=== PATIENT | male | born 1955 | race Caucasian/White ===

== ENCOUNTER 2019-06-14 07:51 | Inpatient (IN) | payer BC ==
[~2019-06-14] VITALS: Ht 180.3 cm; Wt 113.0 kg
[2019-06-14] VITALS (450 sets, daily range): BP systolic 105–131; BP diastolic 72–90; PULSE 74–84; TEMP 97.5–98.7; O2SAT 82–100
[~2019-06-14 07:51] MED LIST: ALLEGRA180 MG PO; CELEBREX 200MG200 MG PO; DOXYCYCLINE 10100 MG PO; EPI EZ PEN1 MG/ML IM; FORTAMET1000 MG PO; GLUCOPHAGE; IBUPROFEN800 MG PO; INSULIN; LANTUS100 U/ML; NIACIN PO; NOVOLIN 70/30 IN3 ML SC; PEPCID 20MG TAB20 MG PO; PREDNISONE20 MG PO; SINGULAIR10 MG PO; TRAMADOL50 MG PO; VASOTEC10 MG PO
[2019-06-14 08:48] LABS: BASO % 0.4 % (0.0-2.0); EOS % 0.4 % (0-4.0); GRAN # 4.5 (1.4-6.5); GRAN % 81.8 % (42.2-75.2); HEMATOCRIT 42.1 % (42.0-52.0); HEMOGLOBIN 14.3 g/dl (13.5-18.0); LYMPH # 0.4 (1.2-3.4); LYMPH % 7.1 % (20.0-51.0); MEAN CELL VOLUME 79 fl (80.0-100.0); MEAN CORPUSCULAR HEMOGLOBIN 27 pg (27.0-31.0); MEAN CORPUSCULAR HGB CONC 34 g/dl (33.0-37.0); MONO # 0.5 (0.1-0.6); MONO % 9.8 % (1.7-9.3); PLATELET COUNT 93 K/mm3 (130-400); RED BLOOD COUNT 5.32 M/mm3 (4.20-5.60); REDCELL DISTRIBUTION WIDTH-CV 13.7 % (11.5-14.5)
[2019-06-14] MEDS ORDERED: NATURAL POTASS595 MG PO (08:50)
[2019-06-14] MEDS ORDERED: PRILOSEC 20MG20 MG PO (08:51)
[2019-06-14] MEDS ORDERED: LYRICA 100MG C100 M1 PO (08:52)
[2019-06-14] MEDS ORDERED: ULTRAM 50MG TAB50 MG PO ×2 (08:52→08:53)
[2019-06-14] MEDS ORDERED: AMITRIPTYLINE H25 M1 PO (08:54)
[2019-06-14] MEDS ORDERED: LIVALO1 MG PO (08:54)
[2019-06-14] MEDS ORDERED: MOBIC15 MG PO (08:55)
[2019-06-14] MEDS ORDERED: OMEGA-3 FISH1000 MG PO (08:56)
[2019-06-14] MEDS ORDERED: MULTIPLE VITAMI1 CAP PO (08:56)
[2019-06-14] MEDS ORDERED: GLUCOPHAGE1000 MG PO (08:57)
[2019-06-14] MEDS ORDERED: TRULICITY1.5 MG/0.5 SQ (08:58)
[2019-06-14] MEDS ORDERED: LEVEMIR100 U/ML SQ (08:59)
[2019-06-14 09:00] LABS: ALANINE AMINOTRANSFERASE 237 U/L (21-72); ALBUMIN 3.9 gm/dL (3.5-5.0); ALKALINE PHOSPHATASE 713 U/L (50-136); ANION GAP 15 mmol/L (7-16); AST,SGOT 173 U/L (15-37); BILIRUBIN,TOTAL 1.2 mg/dL (0.0-1.0); BLOOD UREA NITROGEN 50 mg/dL (9-20); CALCIUM 9.4 mg/dL (8.4-10.2); CARBON DIOXIDE 27 mmol/L (22-30); CHLORIDE 93 mmol/L (98-107); CREATININE, serum 1.44 (0.66-1.25); GLUCOSE 156 mg/dL (74-106); LIPASE 272 U/L (23-300); POTASSIUM 3.2 mmol/L (3.4-5.0); SODIUM 134 mmol/L (137-145); TOTAL PROTEIN 7.7 gm/dL (6.4-8.2)
[2019-06-14] MEDS ORDERED: VITAMINC1000TA PO (09:00)
[2019-06-14] MEDS ORDERED: NOVOLIN R100 U/ML (09:00)
[2019-06-14 09:06] LABS: INR 1.1 (0.8-3.0); PROTHROMBIN TIME 13.1 SECONDS (9.7-12.8)
[2019-06-14 09:12] LABS: C-REACTIVE PROTEIN 18.6 mg/dL (0.0-0.9); TROPONIN-I < 0.012 ng/mL (0.000-0.035)
[2019-06-14 15:12] LABS: COLLECTION METHOD CLEAN CATCH
[2019-06-14 15:30] LABS: AMORPHOUS CRYSTAL Present /uL; MUCOUS Present /lpf; PH 5 (5-8); SQUAMOUS EPITHELIAL 0-2 /hpf; URINE APPEARANCE Cloudy; URINE BACTERIA None Seen /hpf; URINE BILIRUBIN Negative (NEGATIVE); URINE BLOOD Negative (NEGATIVE); URINE COLOR Yellow; URINE GLUCOSE 3+ (NEGATIVE); URINE KETONE Negative (NEGATIVE); URINE LEUKOCYTE ESTERASE Negative (NEGATIVE); URINE NITRATE Negative (NEGATIVE); URINE PROTEIN(semi-quant) 1+ (NEGATIVE)
--- NOTE | 2019-06-14 15:41 | NUR ---
Report given to LindaRN - pt ambulated from ICU 6 to IMCU 16 with standby assistance and without difficulty
--- NOTE | 2019-06-14 15:45 | NUR ---
Patient transfers to [facility] 16 from ICU 6. Assessment completed. Care assumed.
--- NOTE | 2019-06-14 19:02 | NUR ---
Report given to TABITHA Merchant
[2019-06-15] VITALS (16 sets, daily range): BP systolic 100–106; BP diastolic 57–72; PULSE 74–92; TEMP 97.9–98.3; O2SAT 96–99
[2019-06-15 06:48] LABS: MEAN CELL VOLUME 79 fl (80.0-100.0); MEAN CORPUSCULAR HGB CONC 34 g/dl (33.0-37.0); MEAN PLATELET VOLUME 12.4 fl (7.4-10.4); PLATELET COUNT 85 K/mm3 (130-400); RED BLOOD COUNT 4.33 M/mm3 (4.20-5.60); REDCELL DISTRIBUTION WIDTH-CV 14.2 % (11.5-14.5)
[2019-06-15 06:53] LABS: HEMATOCRIT 34.1 % (42.0-52.0); HEMOGLOBIN 11.5 g/dl (13.5-18.0); INR 1.1 (0.8-3.0); MEAN CORPUSCULAR HEMOGLOBIN 27 pg (27.0-31.0)
--- NOTE | 2019-06-15 06:56 | NUR ---
Report given to TABITHA Arreguin
[2019-06-15 07:13] LABS: ALBUMIN 2.7 gm/dL (3.5-5.0); BILIRUBIN,TOTAL 0.7 mg/dL (0.0-1.0); CALCIUM 7.9 mg/dL (8.4-10.2); CREATININE, serum 1.34 (0.66-1.25); MAGNESIUM 2.3 mg/dL (1.6-2.3); POTASSIUM 3.4 mmol/L (3.4-5.0); TOTAL PROTEIN 5.9 gm/dL (6.4-8.2)
--- NOTE | 2019-06-15 07:15 | NUR ---
Report received from Shonda LU and care resumed.
[2019-06-15 08:16] LABS: BAND 4 % (0-10); EOSINOPHIL 1 % (0-4); LYMPHOCYTE 6 % (20.0-51.0); NEUTROPHILS 79 % (42.0-75.2)
[2019-06-15 08:17] LABS: PLATELET ESTIMATE DECREASED (NORMAL)
--- NOTE | 2019-06-15 09:41 | NUR ---
Patient lives at home with his (Leonila Crandall [phone] and [phone]) in [place], [place] and he plans to return home upon recovery. 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 Patient uses a cane as needed for mobility assistance, his primary care physician is [facility], his pharmacy is [facility], and he does not have advance directives for healthcare completed at this time. No further needs and social media marketing manager will follow as needed.
--- NOTE | 2019-06-15 11:51 | NUR ---
Dr Mcnally in to see pt at this time.
--- NOTE | 2019-06-15 13:25 | NUR ---
Pt iv removed and pt dressed. Pt given discharge instructions. Pt walked out to ER entrance for discharge at this time.
== END 2019-06-15 13:25 | disposition home or self-care (01) | DRG 871 ==
LOC: COL.ER 07:51 → ICU 09:37 → IMCU 15:40
PROVIDERS: Emergency Medicine; ADMIT Internal Medicine
DX: A41.9 Sepsis, unspecified organism (principal); D61.811 Other drug-induced pancytopenia; G93.41 Metabolic encephalopathy; E87.2 Acidosis; N17.9 Acute kidney failure, unspecified; T68.XXXA Hypothermia, initial encounter; R65.20 Severe sepsis without septic shock; R74.0 Nonspecific elevation of levels of transaminase and lactic acid dehydrogenase [LDH]; T36.95XA Adverse effect of unspecified systemic antibiotic, initial encounter; R53.81 Other malaise; E11.65 Type 2 diabetes mellitus with hyperglycemia; E11.649 Type 2 diabetes mellitus with hypoglycemia without coma; E87.6 Hypokalemia; Z79.82 Long term (current) use of aspirin; Z79.4 Long term (current) use of insulin
CPT/HCPCS: 99222; 99223-AI; 99239; J1650; J1815; J2405; J2543; J7030

== ENCOUNTER 2019-06-19 15:11 | Emergency (ER) | payer OTHER ==
[~2019-06-19] VITALS: Ht 180.3 cm; Wt 109.1 kg
[~2019-06-19 15:11] MED LIST changes: +AMITRIPTYLINE H25 M1 PO; +GLUCOPHAGE1000 MG PO; +LEVEMIR100 U/ML SQ; +LIVALO1 MG PO; +LYRICA 100MG C100 M1 PO; +MOBIC15 MG PO; +MULTIPLE VITAMI1 CAP PO; +NATURAL POTASS595 MG PO; +NOVOLIN R100 U/ML; +OMEGA-3 FISH1000 MG PO; +PRILOSEC 20MG20 MG PO; +TRULICITY1.5 MG/0.5 SQ; +ULTRAM 50MG TAB50 MG PO; +VITAMINC1000TA PO
[2019-06-19 15:19] VITALS: TEMP 98.5
[2019-06-19] MEDS ORDERED: NORCO 325 MG-51 TAB PO (16:28)
[2019-06-19 17:27] VITALS: BP 143/83; PULSE 90
== END 2019-06-19 17:27 | disposition home or self-care (01) ==
LOC: COL.ER 15:11
DX: S62.501A Fracture of unspecified phalanx of right thumb, initial encounter for closed fracture (principal); S01.01XA Laceration without foreign body of scalp, initial encounter; I10 Essential (primary) hypertension; E11.9 Type 2 diabetes mellitus without complications; Z23 Encounter for immunization; Z79.4 Long term (current) use of insulin; W10.9XXA Fall (on) (from) unspecified stairs and steps, initial encounter; Y92.59 Other trade areas as the place of occurrence of the external cause
CPT/HCPCS: Q4021; Q4050

== ENCOUNTER 2020-10-16 04:02 | Emergency (ER) | payer BC ==
[~2020-10-16] VITALS: Ht 180.3 cm; Wt 102.3 kg
[~2020-10-16 04:02] MED LIST changes: +NORCO 325 MG-51 TAB PO
[2020-10-16 04:06] VITALS: TEMP 98.4
[2020-10-16 04:36] LABS: BASO % 0.5 % (0.0-2.0); EOS # 0.5 (0.0-0.7); EOS % 8.7 % (0-4.0); GRAN # 3.5 (1.4-6.5); GRAN % 59.1 % (42.2-75.2); HEMATOCRIT 43.9 % (42.0-52.0); HEMOGLOBIN 14.3 g/dl (13.5-18.0); LYMPH # 1.3 (1.2-3.4); LYMPH % 22.2 % (20.0-51.0); MEAN CELL VOLUME 82 fl (80.0-100.0); MEAN CORPUSCULAR HEMOGLOBIN 27 pg (27.0-31.0); MEAN CORPUSCULAR HGB CONC 33 g/dl (33.0-37.0); MEAN PLATELET VOLUME 11.7 fl (7.4-10.4); MONO # 0.6 (0.1-0.6); MONO % 9.3 % (1.7-9.3); PLATELET COUNT 188 K/mm3 (130-400); RED BLOOD COUNT 5.33 M/mm3 (4.20-5.60); REDCELL DISTRIBUTION WIDTH-CV 13.8 % (11.5-14.5)
[2020-10-16 04:55] LABS: CREATINE KINASE 39 U/L (55-170)
[2020-10-16 04:56] LABS: ALANINE AMINOTRANSFERASE 29 U/L (4-49); ALBUMIN 4.1 gm/dL (3.5-5.0); ALKALINE PHOSPHATASE 132 U/L (50-136); ANION GAP 6 mmol/L (7-16); AST,SGOT 29 U/L (15-37); BILIRUBIN,TOTAL 0.3 mg/dL (0.0-1.0); BLOOD UREA NITROGEN 24 mg/dL (9-20); CALCIUM 9.4 mg/dL (8.4-10.2); CARBON DIOXIDE 29 mmol/L (22-30); CHLORIDE 102 mmol/L (98-107); CREATININE, serum 0.99 (0.66-1.25); GLUCOSE 234 mg/dL (74-106); POTASSIUM 4.1 mmol/L (3.4-5.0); SODIUM 136 mmol/L (137-145); TOTAL PROTEIN 7.9 gm/dL (6.4-8.2)
[2020-10-16 04:59] LABS: TROPONIN-I < 0.012 ng/mL (0.000-0.035)
[2020-10-16 05:50] VITALS: BP 125/84; PULSE 68
== END 2020-10-16 05:56 | disposition home or self-care (01) ==
LOC: COL.ER 04:02
PROVIDERS: Emergency Medicine
DX: R07.89 Other chest pain (principal); R00.2 Palpitations; E11.9 Type 2 diabetes mellitus without complications; Z79.4 Long term (current) use of insulin
CPT/HCPCS: J2060

== ENCOUNTER 2021-04-05 15:35 | Emergency (ER) | payer BC ==
[~2021-04-05] VITALS: Ht 177.8 cm; Wt 104.5 kg
[2021-04-05] MEDS ORDERED: CEPHALEXIN500 M1 PO (16:33)
[2021-04-05 16:50] VITALS: BP 131/78; PULSE 81; TEMP 98.3
== END 2021-04-05 16:52 | disposition home or self-care (01) ==
LOC: COL.ER 15:35
DX: S61.217A Laceration without foreign body of left little finger without damage to nail, initial encounter (principal); E11.9 Type 2 diabetes mellitus without complications; Z79.4 Long term (current) use of insulin; Z79.84 Long term (current) use of oral hypoglycemic drugs; W27.0XXA Contact with workbench tool, initial encounter; Y93.H2 Activity, gardening and landscaping

== ENCOUNTER 2021-07-22 11:53 | Inpatient (IN) | payer BC ==
[~2021-07-22] VITALS: Ht 177.8 cm; Wt 98.1 kg
[~2021-07-22 11:53] MED LIST changes: +CEPHALEXIN500 M1 PO; +JARDIANCE10; +LYRICA 150MG C150 MG PO; +MULTI VITAMINS1 TAB PO; +NOVOLOG 100U100 U/M1; +OMEGA-3 1000 MG1 CAP PO; +OZEMPIC0.25 MG/0. SQ; +SYNTHROID0.075 MG/T PO
[2021-07-24] MEDS ORDERED: TYLENOL 325MG325 MG PO (10:58)
[2021-07-24] MEDS ORDERED: ASPIRIN 81M81 MG/TA2 PO (10:59)
[2021-07-24] MEDS ORDERED: LIPITOR 40MG TA40 MG PO (10:59)
[2021-07-24] MEDS ORDERED: CORRECTIVE LAXAT5 MG PO (11:00)
[2021-07-24] MEDS ORDERED: BUSPIRONE HCL7.5 MG PO (11:01)
[2021-07-24] MEDS ORDERED: FLEXERIL 1010 MG/TAB PO (11:03)
[2021-07-24] MEDS ORDERED: DEXTROSE 40% PO (11:10)
[2021-07-24] MEDS ORDERED: FENTANYL 25 MCG TD (11:11)
[2021-07-24] MEDS ORDERED: CYMBALTA 30MG30 MG PO (11:11)
[2021-07-24] MEDS ORDERED: NORCO 325 MG-101 TAB PO (11:13)
[2021-07-24] MEDS ORDERED: LANTUS100 U/ML SQ (11:14)
[2021-07-24] MEDS ORDERED: INSULIN LI100 UNIT/1 SQ (11:20)
[2021-07-24] MEDS ORDERED: SYNTHROID0.075 MG/T PO (11:21)
[2021-07-24] MEDS ORDERED: SALONPAS1 EACH TP (11:22)
[2021-07-24] MEDS ORDERED: MILK OF MA1200 MG/5 PO (11:23)
[2021-07-24] MEDS ORDERED: TOPROL XL 25MG25 MG PO (11:24)
[2021-07-24] MEDS ORDERED: PROTONIX 40MG T40 MG PO (11:24)
[2021-07-24] MEDS ORDERED: [UNRECOGNIZED DRUG - OTHER] IV (11:27)
[2021-07-24] MEDS ORDERED: SENOKOT8.6 MG PO ×2 (11:29→11:31)
[2021-07-24] MEDS ORDERED: THEREMS-M TABL1 EACH PO (11:31)
[2021-07-24] MEDS ORDERED: MVI WITH MINERALS PO (11:32)
[2021-07-24] MEDS ORDERED: HUMALOG100 U/ML (11:37)
--- NOTE | 2021-07-24 15:02 | NUR ---
New pt. transported to IPR unit via medical transportation bus from [facility] in [place]. Pt. is alert & oriented x 4. He denies pain or discomfort. Admission assessment and intake completed. Orientation provided to room, call light, visitors, meals. He has no further questions at this time. Call light is within his reach. Pt. arrived to unit at 1400 via stretcher.
[2021-07-24 16:46] VITALS: BP 140/65; PULSE 100; TEMP 99
[2021-07-24 18:20] VITALS: BP 140/65; PULSE 100; TEMP 99
--- NOTE | 2021-07-24 21:22 | NUR ---
PT RESTING IN BED. SEE MAR FOR FLEXARIL GIVEN FOR ARTHRITIC/MUSCLE BACK PAIN. CALL LIGHT IN REACH. BED ALARM SET. DUMAS CATHETER IN PLACE TO DD. DRAINING CLEAR YELLOW URINE W/O DIFFICULTY.
[2021-07-25 05:26] VITALS: BP 140/75; PULSE 83; TEMP 98.8
--- NOTE | 2021-07-25 05:55 | NUR ---
PT HAS HAC UNEVENTFUL NIGHT. NO COMPLAINTS.
--- NOTE | 2021-07-25 07:30 | NUR ---
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
--- NOTE | 2021-07-25 10:37 | NUR ---
Car Construction Superintendent met with patient to complete initial intake as he is new to [facility]. Patient admitted from [facility] in [place]. Patient lives in [place] with his , Leonila (ph#[phone]) and sees Dr. Steward for primary care. Patient obtains medications from [facility] with no difficulties and has a cane and walker at home. Patient was independent with ADLS prior to his hospitalization. 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 Patient advised he also receives services through the [facility] and is on the red team. Patient does not have Advance Directives and is not interested in designating DPOA-HC at this time. SW will continue to follow for discharge needs.
[2021-07-25 17:07] VITALS: BP 147/78; PULSE 93; TEMP 98.2
--- NOTE | 2021-07-26 01:18 | NUR ---
PATIENT ALERT AND ORIENTED. C/O BACK PAIN AND PRN NORCO GIVEN. HS MEDS PER EMAR. ZOSYN TO R WRIST IV. HAS NOT VOIDED YET.
[2021-07-26 05:55] VITALS: BP 122/65; PULSE 90; TEMP 98.3
--- NOTE | 2021-07-26 06:30 | NUR ---
Patient laying in bed, A&Ox4. VSS. IV CDI. Denies pain and discomfort. Nursing staff x2 assisted with repositioning the patient in bed for breakfast. Indpendent with urinal, feeds and positioning in bed. Call light within reach. Bed alarm on
[2021-07-26 17:21] VITALS: BP 124/76; PULSE 93; TEMP 97.7
--- NOTE | 2021-07-26 17:24 | NUR ---
Patient sitting up in the recliner with family at the bedside. A&Ox4. VSS. IV CDI. WBG 65. Will recheck after eating dinner. Patient independent with urinal and feeds. Denies pain and discomfort. Call light within reach
--- NOTE | 2021-07-27 00:36 | NUR ---
PATIENT IN BED. A&O X4. C/O PAIN TO BACK, PRN NORCO GIVEN AT SHIFT CHANGE. INDEPENDENT IN BED WITH TURNS AND USE OF URINAL. HS MEDICATIONS PER EMAR. BLOOD SUGAR 138, NO SSI. INT R FA PATENT AND FLUSHES WITH INT ZOSYN. LIDOCAINE PATCH TO LOWER BACK REMOVED.
[2021-07-27 05:16] VITALS: BP 113/56; PULSE 82; TEMP 98.2
--- NOTE | 2021-07-27 07:14 | NUR ---
SHIFT REPORT RECEIVED FROM UTILITY SALES AND SERVICE MANAGER RN. PT. AWAKE AND LYING IN BED. DENIES PAIN OR DISCOMFORT. DENIES FURTHER NEEDS. CALL LIGHT IS WITHIN HIS REACH
[2021-07-27 07:48] LABS: EOS # 0.1 K/mm3 (0.0-0.7); EOS % 3.1 % (0.0-4.0); GRAN # 1.5 K/mm3 (1.4-6.5); GRAN % 35.8 % (42.2-75.2); LYMPH # 2.1 K/mm3 (1.2-3.4); LYMPH % 49.8 % (20.0-51.0); MEAN CELL VOLUME 81 fl (80.0-100.0); MEAN CORPUSCULAR HGB CONC 32 g/dl (33.0-37.0); MEAN PLATELET VOLUME 10.3 fl (7.4-10.4); MONO # 0.4 K/mm3 (0.1-0.6); MONO % 10.1 % (1.7-9.3); PLATELET COUNT 414 K/mm3 (130-400); REDCELL DISTRIBUTION WIDTH-CV 16.3 % (11.5-14.5)
[2021-07-27 07:51] LABS: HEMATOCRIT 23.4 % (42.0-52.0); HEMOGLOBIN 7.4 g/dl (13.5-18.0); MEAN CORPUSCULAR HEMOGLOBIN 26 pg (27-31)
[2021-07-27 07:56] LABS: C-REACTIVE PROTEIN 5.77 mg/dL (0.00-0.50); CALCIUM 8.5 mg/dL (8.4-10.2); CREATININE, serum 0.99 mg/dL (0.72-1.25); MAGNESIUM 1.8 mg/dL (1.6-2.6); POTASSIUM 3.7 mmol/L (3.5-4.5)
--- NOTE | 2021-07-27 10:15 | NUR ---
IV abx started as per order. ST noted that IV site right forearm is "swelling". IV site infiltration noted by this law writer. IV abx infusion stopped at this time. IV placement attempted x 1 to left hand - this was unsuccessful. Charge nurse notified to reattempt IV placement
--- NOTE | 2021-07-27 11:45 | NUR ---
IV successfully restarted to right forearm by charge nurse. IV site flushes well but site infiltrates a few minutes after starting abx infusion. Dr. Villatoro informed and discussed switching to PO medication if possible. He will discuss with hospitalist team. IV Zosyn discontinued at this time
--- NOTE | 2021-07-27 15:31 | NUR ---
Elementary School Music Teacher met with patient to review and provide copy of team conference notes. SW advised patient that the team is not ready to set a discharge date at this time. LUKE also advised patient that a family meeting will be scheduled for next week. Patient requested SW contact the [facility] (Red Team) to inquire about securing a shower chair. LUKE contacted the Red Team and left a message with the medicare contact specialist. LUKE then contacted patient's , Leonila and scheduled family meeting for 08/03/21 at 1000.
[2021-07-27 17:42] VITALS: BP 138/69; PULSE 93; TEMP 97.6
--- NOTE | 2021-07-27 17:50 | NUR ---
1730 BLOOD SUGAR WAS 37. PT. ALERT AND EATING DINNER. DAUGHTER IS AT BEDSIDE. PT. GIVEN SUGARY DRINK TO HELP BRING UP BLOOD SUGAR. BLOOD SUGAR RECHECKED NOW AND IS UP TO 50. PT. GIVEN SHERBET AND RENEA PUDDING AT HIS REQUEST
--- NOTE | 2021-07-27 21:44 | NUR ---
PATIENT ALERT AND ORIENTED. HS MEDS PER EMAR AND PRN NORCO FOR BACK PAIN. X2 ASSIST WITH WALKER BACK TO BED. BLOOD SUGAR 205 AT HS CHECK, 2 UNITS SSI GIVEN. LIDOCAINE PATCH TO LOWER BACK REMOVED. SITTING IN BED WATCHING TV, CALL LIGHT IN REACH.
[2021-07-28 05:23] VITALS: BP 129/71; PULSE 87; TEMP 98.1
--- NOTE | 2021-07-28 08:00 | NUR ---
Patient laying in bed, A&Ox3. VSS. Request pain medication for back prior to working with PT. RT leg elevated on pillow. Independent with feeds and repositioning in bed. Call light within reach. Bed alarm on
--- NOTE | 2021-07-28 13:18 | NUR ---
Admission QIM scores were reviewed by the team. Code of 4 chosen for oral hygiene was determined by team discussion to be the most usual performance for this patient during the assessment period. Code of 1 chosen for toilet hygiene was determined by team discussion to be the most usual performance for this patient during the assessment period. Code of 2 chosen for toileting transfers was determined by team discussion to be the most usual performance for this patient during the assessment period. Code of 2 chosen for upper body dressing was determined by team discussion to be the most usual performance before interventions for this patient during the assessment period. Code of 2 for sit to stand was determined by team discussion to be the most usual performance for this patient during the assessment period. Code of 88 for chair/bed to chair transfers was determined by team discussion to be the most usual performance for this patient during the assessment period.--Giselle Reeves, PD
--- NOTE | 2021-07-28 13:42 | NUR ---
Outfitter Cabin spoke with the Red Team at the [facility] and was advised an order for a shower chair will be placed. Patient will be contacted once the shower chair is in.
--- NOTE | 2021-07-28 17:51 | NUR ---
Patient sitting up in the recliner, family at the bedside. A&Ox3. VSS. Reports pain in back, kpad applied. Pain medication given when requested. Independent with feeds and repositioning in bed. Call light within reach. Chair alarm on
[2021-07-28 18:14] VITALS: BP 96/83; PULSE 85; TEMP 97.5
[2021-07-29 05:18] VITALS: BP 143/66; PULSE 88; TEMP 98.5
--- NOTE | 2021-07-29 06:05 | NUR ---
pt requested pain meds @HS, norco and flexeril given. sleeping on warm kpad for back pain. fentanyl patch in place. no SS insulin required this shift.
--- NOTE | 2021-07-29 07:16 | NUR ---
SHIFT REPORT RECEIVED FROM YARN SPOOLER RN. PT. AWAKE AND RESTING IN BED. HOB ELEVATED APPROX 30 DEGREES. HE DENIES PAIN OR DISCOMFORT. DENIES FURTHER NEEDS AT THIS TIME. CALL LIGHT IS WITHIN HIS REACH
--- NOTE | 2021-07-29 14:34 | NUR ---
Target Setter met with patient to follow up before the weekend. Patient's is at bedside. Patient has no questions or concerns at this time.
[2021-07-29 17:23] VITALS: BP 123/56; PULSE 71; TEMP 98.5
[2021-07-30 05:17] VITALS: BP 130/51; PULSE 88; TEMP 98.7
[2021-07-30 12:30] LABS: HEMATOCRIT 25.2 % (42.0-52.0); HEMOGLOBIN 7.9 g/dl (13.5-18.0)
[2021-07-30 17:08] VITALS: BP 123/62; PULSE 80; TEMP 98.3
--- NOTE | 2021-07-30 22:25 | NUR ---
Received report from day shift. Patient here for [facility]. Assessment performed. PM meds administered. Patient reports pain /, requests pain medication. VSS. Patient in bed with call light near .
[2021-07-31 05:52] VITALS: BP 126/52; PULSE 80; TEMP 98.6
--- NOTE | 2021-07-31 06:48 | NUR ---
Shift report received from retail shift supervisor RN. Pt. sleeping in bed. HOB elevated approx 30 degrees. Call light is within his reach
[2021-07-31 17:22] VITALS: BP 140/71; PULSE 88; TEMP 99.2
--- NOTE | 2021-07-31 21:34 | NUR ---
PATIENT IN BED ON ROOM ENTRY. ALERT AND ORIENTED. HS MEDS PER EMAR. PRN NORCO FOR LEG AND BACK PAIN. BLOOD SUGARS 193, SSI GIVEN. USING URINAL WITHOUT ISSUES AND CALLING TO EMPTY. STATES HE IS READY FOR BED. CALL LIGHT IN REACH.
[2021-08-01 05:23] VITALS: BP 129/53; PULSE 85; TEMP 98.5
--- NOTE | 2021-08-01 06:44 | NUR ---
Shift report received from night patrol inspector RN. Pt. lying supine in bed. He reports feeling like his legs are more swollen. SUJIT hose removed. 2+ pitting edema noted from ankles to feet. No pain. Feet elevated on pillows. Call light is within his reach
[2021-08-01 14:20] LABS: COLLECTION METHOD CLEAN CATCH
--- NOTE | 2021-08-01 14:24 | NUR ---
LUKE met with the patient and his daughter, Yasmeen, to follow up and introduce oneself. He states that he is doing well and just visiting his daughter. He inquired about the shower chair. LUKE informed him how [facility].
[2021-08-01 14:36] LABS: MUCOUS Present (NOT PRESENT); PH 6 (5-8); SQUAMOUS EPITHELIAL None Seen /hpf (0-10); URINE APPEARANCE Cloudy (CLEAR/HAZY); URINE BACTERIA None Seen /hpf (NONE SEEN); URINE BILIRUBIN Negative (NEGATIVE); URINE BLOOD Negative (NEGATIVE); URINE COLOR Yellow (YELLOW); URINE GLUCOSE Negative (NEGATIVE); URINE KETONE Negative (NEGATIVE); URINE LEUKOCYTE ESTERASE 3+ (NEGATIVE); URINE NITRATE Negative (NEGATIVE); URINE PROTEIN(semi-quant) 1+ (NEGATIVE); URINE UROBILINOGEN Negative (NEGATIVE)
[2021-08-01 15:34] VITALS: BP 127/62; PULSE 89; TEMP 98.3
--- NOTE | 2021-08-01 18:12 | NUR ---
Pt. resting in recliner in room. He reports no pain when he is sitting still. Back brace is on. He denies pain or discomfort. He denies further needs at this time. Call light is within his reach
--- NOTE | 2021-08-01 22:28 | NUR ---
PATIENT IN BED. ALERT AND ORIENTED. HS MEDS PER EMAR. PRN NORCO FOR MODERATE LOW BACK PAIN. BLOOD SUGAR 181, SSI PER EMAR. BILATERAL 2+ EDEMA TO FEET NOTED. DENIES FURTHER NEEDS, CALL LIGHT IN REACH.
[2021-08-02 05:23] VITALS: BP 123/63; PULSE 87; TEMP 98.3
--- NOTE | 2021-08-02 06:45 | NUR ---
Report received, assumed care for day shift.
--- NOTE | 2021-08-02 08:00 | NUR ---
Assessment complete. A&Ox3. Denies pain/nausea/shortness of breath. VS remain stable. Noted to have 2+ edema to bilat feet. Assisted up to bathroom x2 assist with sit to stand. Large BM/voided without difficulty. Plan of care discussed for this shift to include meds/therapy/calling for questions/concerns. Verbalizes understanding. Call light in reach. Will monitor.
[2021-08-02 16:30] VITALS: BP 122/59; PULSE 90; TEMP 97.9
--- NOTE | 2021-08-02 17:36 | NUR ---
Patient has hadan uneventful day. Denied pain/nausea/shortness of breath. VS remained stable. Did start on Omnicef for UTI. is at bedside. Denies current needs. Call light in reach. Will monitor.
--- NOTE | 2021-08-03 01:41 | NUR ---
Received report from day shift. Patient alert and oriented x4. VSS. PM meds administered. Patient complains of pain 6/10. Requests pain medication. Assessment performed. Patient resting in bed with call light near.
[2021-08-03 05:51] VITALS: BP 122/57; PULSE 91; TEMP 98
--- NOTE | 2021-08-03 07:16 | NUR ---
Shift report received from slot shift supervisor RN. Pt. resting supine in bed. Call light is within his reach
--- NOTE | 2021-08-03 13:19 | NUR ---
SW attended the patient/family meeting. The patient's , Leonila, at bedside. Also present was IPR Director, Dr. Villatoro, PT/OT/ST, and the hris developer. IPR Director started by explaining the purpose of the meeting. Dr. Villatoro then provided a clinical update. PT/OT/ST then discussed the patient's progress so far. IPR Director informed the patient and Leonila that the team has set a tentative discharge for next Sunday, 08/12, with home health. The team plans to re-evaluate the patient next Sunday to determine if patient is on track to discharge on Sunday. The patient and his verbalized understanding and are in agreement to the plan. The team answered all of patient's and 's questions.
--- NOTE | 2021-08-03 16:30 | NUR ---
Pt. reports lack of bowel movement x 4 days. Reports feeling "constipated". He denies abd. pain. No nausea or vomiting. PRN stool softeners administered this afternoon for relief. Will continue to monitor
[2021-08-03 17:14] VITALS: BP 144/71; PULSE 106; TEMP 98.1
--- NOTE | 2021-08-03 19:15 | NUR ---
RECEIVED CHANGE OF SHIFT REPORT FROM DAY SHIFT RN. PATIENT IN BED DURING REPORT WITH EXIT ALARM ON AND CALL LIGHT WITHIN REACH.
[2021-08-04 05:26] VITALS: BP 126/61; PULSE 90; TEMP 98.1
--- NOTE | 2021-08-04 07:02 | NUR ---
Pt. resting supine in bed. HOB elevated approx 30 degrees. Call light is within his reach
--- NOTE | 2021-08-04 07:14 | NUR ---
CHANGE OF SHIFT REPORT GIVEN TO DAY SHIFT RNMANAV.
--- NOTE | 2021-08-04 14:52 | NUR ---
SW met with the patient to present and review the IPR Team Conference Note. The patient is in agreement of the tentative discharge date for next Sunday, 08/12, with home health and to re-eval on Sunday. The patient is in agreement to the plan.
--- NOTE | 2021-08-04 15:05 | NUR ---
Pt. sitting up in recliner. He denies pain or discomfort at this time. He has completed all PT, OT, ST for the day. He denies further needs. Call light is within his reach
[2021-08-04 17:17] VITALS: BP 121/59; PULSE 87; TEMP 98.5
--- NOTE | 2021-08-04 21:15 | NUR ---
PT RESTING IN BED. SEE MAR FOR NORCO GIVEN. FENTANYL PATCH TO LT CHEST. LIDODERM PATCH TAKEN OFF. DECLINED [place] TONIGHT. SHIFT ASSESSMENT COMPLETED. CALL LIGHT IN REACH. BED ALARM SET.
[2021-08-05 05:12] VITALS: BP 124/54; PULSE 93; TEMP 98.5
--- NOTE | 2021-08-05 06:22 | NUR ---
SEE MAR FOR PAIN MED GIVEN FOR BACK PAIN. NO OTHER NEEDS AT THIS TIME.
--- NOTE | 2021-08-05 08:30 | NUR ---
Pt has eaten and is ready for therapy. Pt aware of the therapy schedule for the day. All questions answered, call light within reach.
--- NOTE | 2021-08-05 12:30 | NUR ---
Pt doing well this morning. Only pain complaints in his back, reports that it isn't too bad except following therapy due to the twisting to catch a ball. Pt reports it has gotten better since at rest. PRN pain medication per request. Pt denies any other needs, will continue to monitor.
[2021-08-05 17:12] VITALS: BP 122/64; PULSE 90; TEMP 97.3
--- NOTE | 2021-08-05 18:09 | NUR ---
Pt did well today with therapy. Required pain medication x1 for back pain during therapy. Pt had minimal needs. He is currently sitting up in the chair, call light within reach
[2021-08-06 06:06] VITALS: BP 121/65; PULSE 93; TEMP 98.3
--- NOTE | 2021-08-06 06:45 | NUR ---
Report received, assumed care for day shift.
--- NOTE | 2021-08-06 07:40 | NUR ---
Assessment commplete. A&Ox3. Requesting [place]/flexeril now before therapy. Given per dr order. Rating current pain 3/10 on pain scale-to lower back. Noted to have +2 edema to lower extremities. Provided with therapy schedule for day. Plan of care discussed for therapy/meds/calling for questions/concerns. Verbalizes understanding/denies needs. Call light in reach. Will monitor.
--- NOTE | 2021-08-06 13:30 | NUR ---
Family at bedside visiting patient.
--- NOTE | 2021-08-06 17:19 | NUR ---
Patient had an uneventful day. Was up to chair for meals and visiting with family. Received flexeril/norco for pain. Denied questions/concerns. Call light in reach. will monitor.
[2021-08-06 17:49] VITALS: BP 136/55; PULSE 83; TEMP 98.3
--- NOTE | 2021-08-06 18:22 | NUR ---
Report to TABITHA Monge
--- NOTE | 2021-08-06 19:29 | NUR ---
PT SITTING UP IN CAHIR. TRANSFERRED MIN 1 ASSIST WITH WALKER TO BED. PT ABLE TO LIFT LEGS INTO BED HIMSELF. NO NEEDS AT THIS TIME. NO ALRAMS PER BAUDILIO.
--- NOTE | 2021-08-06 21:00 | NUR ---
SHIFT ASSESSMENT COMPLETED. SEE MAR FOR PAIN MED GIVEN. CALL LIGHT IN REACH.
[2021-08-07 05:52] VITALS: BP 141/64; PULSE 91; TEMP 97.8
--- NOTE | 2021-08-07 06:22 | NUR ---
pt has rested well. uneventful night.
--- NOTE | 2021-08-07 07:25 | NUR ---
awake resting in bed, waiting for breakfast, full assessment completed, see interventions for further info, breakfast here
--- NOTE | 2021-08-07 10:19 | NUR ---
remains up in chair, denies needs
--- NOTE | 2021-08-07 11:09 | NUR ---
resting in chair, c/o pain and muscle spasms and medicated with hydrocodone 10mg 1 tab and flexeril 10mg po, denies other needs
--- NOTE | 2021-08-07 17:18 | NUR ---
sitting up in chair ready for supper, c/o back pain and medicated with hydrocodone 10mg 1 tab
[2021-08-07 17:57] VITALS: BP 134/71; PULSE 83; TEMP 97.9
--- NOTE | 2021-08-07 18:45 | NUR ---
shift report given to TABITHA Monge
[2021-08-08 05:58] VITALS: BP 132/70; PULSE 88; TEMP 98.4
--- NOTE | 2021-08-08 07:46 | NUR ---
Shift report received from shift leader RN. Pt. awake and lying supine in bed. He is requesting PRN pain medications for back pain before he begins his therapies for the day. Pain is level 6/10. Pain medications administered. He denies further needs at this time. Call light is within his reach
--- NOTE | 2021-08-08 14:29 | NUR ---
LUKE met with the patient to follow up after the weekend and provided him with Medicare.gov's list of home health agencies in the [facility]. The patient states that he is doing well. He plans to look over the list with his . He had no concerns for LUKE.
--- NOTE | 2021-08-08 14:55 | NUR ---
Pt. sitting in recliner visiting with his daughter. He reports minimal to no pain at this time. He denies further needs. Call light is within his reach
[2021-08-08 17:40] VITALS: BP 132/58; PULSE 92; TEMP 98.4
--- NOTE | 2021-08-08 20:33 | NUR ---
RECEIVE CHANGE OF SHIFT REPORT FROM DAY SHIFT RN.
[2021-08-09 05:41] VITALS: BP 131/63; PULSE 87; TEMP 98.3
[2021-08-09 06:05] LABS: BASO % 0.7 % (0.0-2.0); EOS # 0.3 K/mm3 (0.0-0.7); EOS % 5.9 % (0.0-4.0); GRAN # 1.8 K/mm3 (1.4-6.5); GRAN % 39.6 % (42.2-75.2); LYMPH # 1.9 K/mm3 (1.2-3.4); LYMPH % 43.3 % (20.0-51.0); MEAN CELL VOLUME 80 fl (80.0-100.0); MEAN CORPUSCULAR HGB CONC 31 g/dl (33.0-37.0); MEAN PLATELET VOLUME 10.5 fl (7.4-10.4); MONO # 0.4 K/mm3 (0.1-0.6); PLATELET COUNT 326 K/mm3 (130-400); RED BLOOD COUNT 3.07 M/mm3 (4.20-5.60); REDCELL DISTRIBUTION WIDTH-CV 16.3 % (11.5-14.5)
[2021-08-09 06:11] LABS: HEMATOCRIT 24.6 % (42.0-52.0); HEMOGLOBIN 7.7 g/dl (13.5-18.0); MEAN CORPUSCULAR HEMOGLOBIN 25 pg (27-31)
[2021-08-09 06:14] LABS: CALCIUM 8.6 mg/dL (8.4-10.2); CREATININE, serum 0.92 mg/dL (0.72-1.25); MAGNESIUM 1.8 mg/dL (1.6-2.6); POTASSIUM 4.2 mmol/L (3.5-4.5)
--- NOTE | 2021-08-09 06:54 | NUR ---
CHANGE OF SHIFT REPORT GIVEN TO DAY SHIFT RNMANAV.
--- NOTE | 2021-08-09 06:58 | NUR ---
Pt resting supine in bed. HOB elevated approx 30 degrees. Pt. reporting that he did not sleep well because of right foot neuropathy. He reports that "pain is coming down" and rates pain at 4/10. No further needs at this time. Call light is within his reach
--- NOTE | 2021-08-09 09:15 | NUR ---
Pt sitting up at bedside. Rt. foot plantar area had open area on admission. This area is nearly healed. Pt. reports minimal pain/discomfort at this time. Denies further needs. Call light is within his reach
[2021-08-09 17:11] VITALS: BP 127/66; PULSE 100; TEMP 98
--- NOTE | 2021-08-09 19:30 | NUR ---
RECEIVED CHANGE OF SHIFT REPORT FROM DAY SHIFT RN. PATIENT UP IN ROOM INDEPENDENTLY WITH NO REPORTED NEEDS OR CONCRENS.
[2021-08-10 04:10] VITALS: BP 133/65; PULSE 90; TEMP 98.8
--- NOTE | 2021-08-10 07:11 | NUR ---
CHANGE OF SHIFT REPORT GIVEN TO DAY SHIFT RNNEGRITA.
--- NOTE | 2021-08-10 07:30 | NUR ---
Assessment completd, alert/oriented, vital signs have been stable, pain controlled with PRN medications, heart RRR, lungs CTA, he is up in the chair having breakfast and morning meds given, he is scheduled for a left foot MRI today to evaluate for cause of swelling, he denies other needs at this time
--- NOTE | 2021-08-10 14:20 | NUR ---
LUKE and LUKE student met with the patient to present and review the IPR Team Conference Note. The team has set a discharge date for this Sunday, 08/12, with home health PT/OT/SN. The patient is in agreement to the plan and he chose [facility]. He states that his is already aware of the discharge date for this Sunday. LUKE student contacted and faxed a referral to Shauna at [facility]. Awaiting screen.
[2021-08-10 16:30] VITALS: BP 126/64; PULSE 96; TEMP 97.8
--- NOTE | 2021-08-11 02:49 | NUR ---
PATIENT ALERT AND ORIENTED. REQUEST PAIN MEDS. PRN NORCO GIVEN AT HS, ALONG WITH SCHEDULED MEDS PER EMAR. FEET ARE EDEMATOUS. PATIENT CURRENTLY RESTING IN BED, CALL LIGHT IN REACH, RESPIRATIONS EVEN AND UNLABORED.
[2021-08-11 05:39] VITALS: BP 121/65; PULSE 93; TEMP 98.8
--- NOTE | 2021-08-11 14:05 | NUR ---
Shauna, at [facility], states that they are good to accept the patient for services. With the patient's [employer], he would have a co-pay of $17 for any therapy visits and $14 for nursing visits. The patient is in therapy. SW contacted and updated the patient's , Leonila, on the above. Leonila verbalized understanding and is agreeable to the costs and moving forward with home health.
--- NOTE | 2021-08-11 14:09 | NUR ---
WHILE WORKING WITH OCCUPATIONAL THERAPY TO PUT HIS SUJIT HOSE ON, IS IS NOTED THAT PT BEGINS BLEEDING FROM 3 SMALL LACERATIONS ON HIS LOWER RIGHT LEG. PT STATES THAT HE THINKS HE MAY HAVE CUT HIMSELF WITH HIS FINGERNAILS. BANDAIDS APPLIED TO EACH LACERATION BEFORE PT PUTS SUJIT HOSE BACK ON.
--- NOTE | 2021-08-11 14:58 | NUR ---
Giselle, IPR Director, notified LUKE that they holding off on discharge tomorrow. The patient developed Charcot Foot and will likely be non-weight bearing on his foot now. The team will continue to work with the patient and they have set a new discharge date for next Sunday, 08/16. He may need a wheelchair now, but his is going to ask their druze or the [facility] if they have one. LUKE attempted to contact the patient's to review the above. LUKE left her a voicemail. LUKE updated Shauna at [facility].
[2021-08-11 17:51] VITALS: BP 112/62; PULSE 85; TEMP 98.7; TEMP 987.6
[2021-08-11 19:56] VITALS: BP 106/51; PULSE 88; TEMP 97.6
[2021-08-12 05:26] VITALS: BP 101/43; PULSE 91; TEMP 98.3
--- NOTE | 2021-08-12 06:22 | NUR ---
Pt had an uneventful night, had minimal complaints of pain. Full body assessment and medication administration completed without difficulty. Pt A&Ox3 and pleasant. Pt aware of PT/OT/ST schedule, has no other questions at this time. Will continue to monitor, call light within reach.
--- NOTE | 2021-08-12 08:00 | NUR ---
Patient laying in bed, A&Ox4. VSS. Reports lower back pain, lidocaine patch applied. Independent with feeds and urinal. Boot on left foot. No further needs expressed. Call light within reach
--- NOTE | 2021-08-12 14:09 | NUR ---
LUKE met with the patient and his , Leonila, to follow up about the wheelchair and the plan for discharge on Sunday now. The patient states that he has contacted the [employer] and they are checking the measurements on the wheelchair. They plan on contacting the patient back with the measurements. The patient is not sure if the wheelchair they have will be too big or not. LUKE provided the patient and his with this SW's phone number to call, once they find out the measurements and if the wheelchair will work for them or not. The patient and Leonila are okay with ordering a wheelchair through a local [employer] company, if the wheelchair from the [facility] does not work.
--- NOTE | 2021-08-12 15:31 | NUR ---
The patient contacted this SW. He states that the [employer] has a 24 inch wheelchair that he can use and that this will work for him.
[2021-08-12 17:16] VITALS: BP 130/61; PULSE 82; TEMP 98.4
--- NOTE | 2021-08-12 17:23 | NUR ---
Patient sitting up on the edge of bed eating dinner. at the bedside. A&Ox3. VSS. Reports pain in BLE and lower back, pain medication given as requested. Boot on left leg. Patient independent with feeds and repositioning in bed. Call light within reach. Bed alarm on
[2021-08-13 06:03] VITALS: BP 129/50; PULSE 87; TEMP 98.2
--- NOTE | 2021-08-13 06:05 | NUR ---
pain meds given @HS to help with sleep, 4 units SSI required last noc for BGM 177. using slide board for transfers, cam boot on LLOsvaldo, NWChandler
--- NOTE | 2021-08-13 06:50 | NUR ---
Shift report received from third shift lieutenant RN. Pt. awake and resting supine in bed. HOB elevated approx 30 degrees. Boot remains on left foot as ordered. Pt. denies pain or discomfor at this time. Call light is within his reach
--- NOTE | 2021-08-13 15:17 | NUR ---
Pt. assisted to toilet and back to his wheelchair at his request. His is in the room to visit. Cam boot is on his left foot. He remains NWB to left foot. PRN pain medication was last given during noon hour. He currently denies any pain or discomfort. Denies further needs. Call light is within his reach
[2021-08-13 17:03] VITALS: BP 115/62; PULSE 71; TEMP 98.2
--- NOTE | 2021-08-13 19:00 | NUR ---
RECEIVED CHANGE OF SHIFT REPORT FROM DAY SHIFT RN. PATIENT DENIES ANY NEEDS OR CONCERNS AT TIME OF REPORT.
[2021-08-14 05:54] VITALS: BP 127/60; PULSE 91; TEMP 97.8
--- NOTE | 2021-08-14 07:14 | NUR ---
Change of shift report given to day shift RNFranchesca.
[2021-08-14 17:02] VITALS: BP 127/65; PULSE 97; TEMP 97.8
--- NOTE | 2021-08-15 01:29 | NUR ---
PATIENT ALERT AND ORIENTED. REQUEST [facility] WITH [facility] MED[facility]. SEE [facility] FOR MED ADMINISTRATION. CAM BOOT IN PLACE. PATIENT HAS BEEN USING SLIDE BOARD FOR TRANSFERS. VOIDING WITH URINAL AT THIS TIME. BLOOD SUGAR 133 AT HS. FEET ARE STILL EDEMATOUS. DENIES ADDITIONAL NEEDS. CURRENTLY RESTING IN BED, RR EVEN AND UNLABORED. CALL LIGHT IN REACH.
[2021-08-15 05:28] VITALS: BP 126/61; PULSE 91; TEMP 98.3
[2021-08-15 07:06] LABS: BASO % 0.6 % (0.0-2.0); EOS # 0.4 K/mm3 (0.0-0.7); EOS % 7.1 % (0.0-4.0); GRAN # 2.2 K/mm3 (1.4-6.5); GRAN % 44.9 % (42.2-75.2); LYMPH # 1.9 K/mm3 (1.2-3.4); LYMPH % 38.1 % (20.0-51.0); MEAN CELL VOLUME 80 fl (80.0-100.0); MEAN CORPUSCULAR HGB CONC 32 g/dl (33.0-37.0); MEAN PLATELET VOLUME 11.5 fl (7.4-10.4); MONO # 0.4 K/mm3 (0.1-0.6); MONO % 8.9 % (1.7-9.3); PLATELET COUNT 375 K/mm3 (130-400); RED BLOOD COUNT 3.27 M/mm3 (4.20-5.60); REDCELL DISTRIBUTION WIDTH-CV 17.1 % (11.5-14.5)
[2021-08-15 07:09] LABS: HEMOGLOBIN 8.3 g/dl (13.5-18.0); MEAN CORPUSCULAR HEMOGLOBIN 25 pg (27-31)
[2021-08-15 07:23] LABS: CALCIUM 8.6 mg/dL (8.4-10.2); CREATININE, serum 1.03 mg/dL (0.72-1.25); MAGNESIUM 1.7 mg/dL (1.6-2.6); POTASSIUM 3.9 mmol/L (3.5-4.5)
--- NOTE | 2021-08-15 08:00 | NUR ---
PATIENT IS A&O. VSS. NO C/O PAIN. PATIENT WAS RECENTLY GIVEN PAIN MEDS FROM [facility]. AM MEDS GIVEN. BREAKFAST TRAY AT BEDSIDE. TOLERATING ADA DIET. AM BS WAS 156. HEAD TO TOE ASSESSMENT COMPLETE, SEE SHIFT ASSESSMENT. NWB TO LLE. PT/OT/ST CONSULTED. NO OTHER NEEDS. CALL LIGHT IN REACH.
--- NOTE | 2021-08-15 13:41 | NUR ---
SW notified by IPR director that the patient will need to go home with a slide board. Contact made with [facility] who has 1 24" in stock. Asked [facility] insurance service representative, if they would be able to hold it for the patient until i got the doctors signature. Fabricio verablized that they would be able to do that. Patients clinical information faxed and notified DME agency that i would get the order tomorrow morning.
--- NOTE | 2021-08-15 15:23 | NUR ---
Followed up with the patient and his Leonila at bedside regarding DME/perscriptions. Informed the patient that i have [facility] to [facility] about [facility] for the patients slide board and knee walker. Informed them that [facility] has one 24" in stock. Quote given to me was $60 and that it is not something that is rented out. Informed the patient and his of this, which they are ok with buying. Let him know that for the knee walker it can be rented for $55 per month. He states his son has one that he would be able to bring down for the patient to use. Asked if the patient was ok with his new medications going to [facility] before the [facility]. Patient verbalized his agreement with this plan. Confirmed with the patient that he would still like to go home with [facility]. Patients order for slide board faxed to [facility].
[2021-08-15 17:15] VITALS: BP 115/65; PULSE 94; TEMP 97.8
--- NOTE | 2021-08-15 18:57 | NUR ---
RECEIVED CHANGE OF SHIFT REPORT FROM DAY SHIFT RN.
--- NOTE | 2021-08-15 19:16 | NUR ---
REQUESTS TO HAVE NORCO AND FLEXERIL GIVEN TO [facility]. DENIES ANY OTHER NEEDS AT THIS TIME.
[2021-08-16 06:03] VITALS: BP 124/64; PULSE 95; TEMP 97.7
--- NOTE | 2021-08-16 07:24 | NUR ---
CHANGE OF SHIFT REPORT GIVEN TO DAY SHIFT RNLAURA.
--- NOTE | 2021-08-16 08:00 | NUR ---
PATIENT IS A&O. VSS. NO COMPLAINTS. PATIENT PLANNING TO DISCHARGE HOME TODAY. HEAD TO TOE ASSESSMENT COMPLETE. AM MEDS GIVEN.
[2021-08-16] MEDS ORDERED: FLEXERIL 1010 MG/TAB PO (10:21)
[2021-08-16] MEDS ORDERED: FLOMAX 0.40.4 MG/CAP PO (10:21)
[2021-08-16] MEDS ORDERED: LIPITOR 40MG TA40 MG PO (10:22)
[2021-08-16] MEDS ORDERED: TOPROL XL 25MG25 MG PO (10:23)
[2021-08-16] MEDS ORDERED: ASPIRIN 81M81 MG/TA2 PO (10:23)
[2021-08-16] MEDS ORDERED: CYMBALTA 30MG30 MG PO (10:24)
[2021-08-16] MEDS ORDERED: BUSPIRONE HCL7.5 MG PO (10:25)
[2021-08-16] MEDS ORDERED: CORRECTIVE LAXAT5 MG PO (10:26)
[2021-08-16] MEDS ORDERED: SENOKOT S 50 MG1 TAB PO (10:26)
[2021-08-16] MEDS ORDERED: PROTONIX 40MG T40 MG PO (10:27)
[2021-08-16] MEDS ORDERED: LANTUS SOLOS100 U/ML SQ (10:30)
[2021-08-16] MEDS ORDERED: INSULIN LI100 UNIT/1 SQ (10:32)
[2021-08-16] MEDS ORDERED: NORCO 325 MG-101 TAB PO (10:34)
--- NOTE | 2021-08-16 12:17 | NUR ---
Notified [facility] that the patient is discharging today. Clinical updates and discharge orders faxed to Shauna at [facility].
--- NOTE | 2021-08-16 13:00 | NUR ---
PATIENT DISCHARGING HOME VIA WC WITH FAMILY. RN GAVE DISCHARGE INSTRUCTIONS AND ANSWERED QUESTIONS/CONCERNS. PATIENT IS DRESSED, PACKED AND ESCORTED OUT.
--- NOTE | 2021-08-16 14:30 | NUR ---
Discharge QIM scores were reviewed by the team. Code of 4 chosen for toilet hygiene was determined by team discussion to be the most usual performance for this patient during the assessment period. Code of 4 for sit to stand was determined by team discussion to be the most usual performance for this patient during the assessment period. Code of 6 for chair/bed to chair transfers was determined by team discussion to be the most usual performance for this patient during the assessment period.--Giselle Reeves, PD
== END 2021-08-16 13:00 | disposition home health service (06) | DRG 91 ==
PROVIDERS: Internal Medicine; Physician Assistant; ADMIT Physical Medicine & Rehabilitation Sports Medicine
DX: G72.81 Critical illness myopathy (principal); I33.0 Acute and subacute infective endocarditis; I42.9 Cardiomyopathy, unspecified; E46 Unspecified protein-calorie malnutrition; N39.0 Urinary tract infection, site not specified; E11.21 Type 2 diabetes mellitus with diabetic nephropathy; E11.40 Type 2 diabetes mellitus with diabetic neuropathy, unspecified; D63.8 Anemia in other chronic diseases classified elsewhere; E03.9 Hypothyroidism, unspecified; B95.2 Enterococcus as the cause of diseases classified elsewhere; E78.5 Hyperlipidemia, unspecified; M47.816 Spondylosis without myelopathy or radiculopathy, lumbar region; K21.9 Gastro-esophageal reflux disease without esophagitis; R26.89 Other abnormalities of gait and mobility; K59.00 Constipation, unspecified; Z88.8 Allergy status to other drugs, medicaments and biological substances; Z91.013 Allergy to seafood; Z91.030 Bee allergy status; Z73.6 Limitation of activities due to disability; Z79.82 Long term (current) use of aspirin; Z79.899 Other long term (current) drug therapy; Z79.4 Long term (current) use of insulin; Z79.891 Long term (current) use of opiate analgesic; Z79.2 Long term (current) use of antibiotics; R35.0 Frequency of micturition; E11.649 Type 2 diabetes mellitus with hypoglycemia without coma; E11.610 Type 2 diabetes mellitus with diabetic neuropathic arthropathy
CPT/HCPCS: 99222; 99231-AI; 99232-AI; 99233-AI; J1644; J1815; J2543; L4386

== ENCOUNTER → 2021-08-30 | Outpatient (CLI) | payer BC ==
[~2021-08-30] MED LIST changes: +ASPIRIN 81M81 MG/TA2 PO; +BUSPIRONE HCL7.5 MG PO; +CORRECTIVE LAXAT5 MG PO; +CYMBALTA 30MG30 MG PO; +DEXTROSE 40% PO; +FENTANYL 25 MCG TD; +FLEXERIL 1010 MG/TAB PO; +FLOMAX 0.40.4 MG/CAP PO; +HUMALOG100 U/ML; +INSULIN LI100 UNIT/1 SQ; +LANTUS SOLOS100 U/ML SQ; +LANTUS100 U/ML SQ; +LIPITOR 40MG TA40 MG PO; +MILK OF MA1200 MG/5 PO; +MVI WITH MINERALS PO; +NORCO 325 MG-101 TAB PO; +PROTONIX 40MG T40 MG PO; +SALONPAS1 EACH TP; +SENOKOT S 50 MG1 TAB PO; +SENOKOT8.6 MG PO; +THEREMS-M TABL1 EACH PO; +TOPROL XL 25MG25 MG PO; +TYLENOL 325MG325 MG PO; +[UNRECOGNIZED DRUG - OTHER] IV
== END ==
LOC: MHCPAIN 14:28
DX: M47.896 Other spondylosis, lumbar region (principal); M54.50 Low back pain, unspecified; M14.672 Charcot's joint, left ankle and foot; M25.562 Pain in left knee; G72.81 Critical illness myopathy
CPT/HCPCS: G0463

== ENCOUNTER → 2021-10-18 | Outpatient (CLI) | payer BC ==
[~2021-10-18] MED LIST changes: +ROBAXIN 75750 MG/TAB PO
== END ==
LOC: MHCPAIN 13:17
DX: R07.89 Other chest pain (principal); M54.6 Pain in thoracic spine; G72.81 Critical illness myopathy; R29.6 Repeated falls
CPT/HCPCS: G0463

== ENCOUNTER 2021-10-31 21:30 | Emergency (ER) | payer BC ==
[~2021-10-31] VITALS: Ht 180.3 cm; Wt 95.0 kg
[~2021-10-31 21:30] MED LIST changes: -ROBAXIN 75750 MG/TAB PO
[2021-10-31 21:40] VITALS: TEMP 98.2
[2021-10-31 22:32] VITALS: BP 136/94; PULSE 98
[2021-10-31] MEDS ORDERED: ROBAXIN 75750 MG/TAB PO (22:32)
== END 2021-10-31 22:42 | disposition home or self-care (01) ==
LOC: COL.ER 21:30
DX: M54.6 Pain in thoracic spine (principal); R07.81 Pleurodynia; G47.33 Obstructive sleep apnea (adult) (pediatric); Z99.89 Dependence on other enabling machines and devices

== ENCOUNTER 2021-11-23 06:52 | Outpatient (CLI) | payer BC ==
[~2021-11-23] VITALS: Ht 177.8 cm; Wt 105.0 kg
[~2021-11-23 06:52] MED LIST changes: +ROBAXIN 75750 MG/TAB PO
[2021-11-23 07:48] VITALS: BP 120/91; PULSE 91; TEMP 97.9
[2021-11-23 07:53] LABS: HEMOGLOBIN 11.1 g/dl (13.5-18.0); MEAN CELL VOLUME 78 fl (80.0-100.0); MEAN CORPUSCULAR HEMOGLOBIN 26 pg (27-31); MEAN CORPUSCULAR HGB CONC 33 g/dl (33.0-37.0); MEAN PLATELET VOLUME 11.8 fl (7.4-10.4); PLATELET COUNT 171 K/mm3 (130-400); REDCELL DISTRIBUTION WIDTH-CV 15.1 % (11.5-14.5)
[2021-11-23 07:55] LABS: INR 1.1 (0.8-3.0); PROTHROMBIN TIME 12.1 SECONDS (9.7-12.8)
[2021-11-23 08:03] LABS: CALCIUM 9.4 mg/dL (8.4-10.2); CREATININE, serum 1.81 mg/dL (0.72-1.25); POTASSIUM 4.5 mmol/L (3.5-4.5)
[2021-11-23] MEDS ORDERED: LEVEMIR100 U/ML SQ (08:03)
[2021-11-23 08:08] LABS: HEMATOCRIT 33.4 % (42.0-52.0)
[2021-11-23 09:35] VITALS: BP 115/71; PULSE 69
--- NOTE | 2021-11-23 09:35 | NUR ---
REPORT FROM [facility], PT IS AWAKE AND ALERT, IN ROOM, PT HAS NO C/O, TAKES DIET SPRITE
[2021-11-23 09:50] VITALS: BP 121/69; PULSE 69
--- NOTE | 2021-11-23 09:50 | NUR ---
DR CALLEJAS INTO SEE PT AND
[2021-11-23 10:10] VITALS: BP 119/69; PULSE 70
--- NOTE | 2021-11-23 10:10 | NUR ---
REVIEWED DISCHARGE INST. WITH PT AND , PT IS NOT TO TAKE LASIX AND POTASSIUM (WAS NOT ON HIS LIST FROM HOME) PER DR CALLEJAS. IV D'CD INTACT. PT UP AND DRESSED, PT HAS NEXT APPT WITH LAB 1 WEEK BEFORE
[2021-11-23 10:25] VITALS: BP 118/69; PULSE 70
--- NOTE | 2021-11-23 10:30 | NUR ---
PT DISCHARGED VIA W/C TO CAR WITH AND SUPPLIES
== END 2021-11-23 10:30 | disposition home or self-care (01) ==
LOC: COL.RAD 06:52
PROVIDERS: Internal Medicine Adult Congenital Heart Disease
DX: I08.3 Combined rheumatic disorders of mitral, aortic and tricuspid valves (principal)
CPT/HCPCS: J2704

== ENCOUNTER → 2021-11-29 | Outpatient (CLI) | payer BC | LOC: COL.RAD 14:42 | DX: M54.6 Pain in thoracic spine (principal) ==

== ENCOUNTER → 2021-11-29 | Outpatient (CLI) | payer BC | LOC: MHCPAIN 13:30 | DX: M54.6 Pain in thoracic spine (principal); M54.50 Low back pain, unspecified; R07.89 Other chest pain; E11.65 Type 2 diabetes mellitus with hyperglycemia; N18.9 Chronic kidney disease, unspecified | CPT/HCPCS: G0463 ==

== ENCOUNTER → 2021-12-28 | Outpatient (CLI) | payer BC | LOC: MHCPAIN 11:30 | DX: M54.6 Pain in thoracic spine (principal); R93.7 Abnormal findings on diagnostic imaging of other parts of musculoskeletal system; Z86.79 Personal history of other diseases of the circulatory system | CPT/HCPCS: G0463 ==